=== PATIENT | male | born 1995 | race African-American/Black ===

== ENCOUNTER 2018-01-05 10:20 | Emergency (ER) | payer MEDICAID ==
[~2018-01-05] VITALS: Ht 185.4 cm; Wt 79.0 kg
[2018-01-05 10:21] VITALS: BP 122/82
== END 2018-01-05 12:17 | disposition left against medical advice (07) ==
LOC: ER 11:18
DX: Z53.21 Procedure and treatment not carried out due to patient leaving prior to being seen by health care provider (principal)
CPT/HCPCS: 99283

== ENCOUNTER 2022-04-19 09:09 | Emergency (ER) | payer SELFPAY ==
[~2022-04-19] VITALS: Ht 189.2 cm; Wt 66.0 kg
[2022-04-19 09:21] VITALS: BP 133/83
[2022-04-19] MEDS ORDERED: IBUP-2028 MT (10:08)
[2022-04-19] MEDS ORDERED: CLIN-194 MT (10:08)
[2022-04-19] MEDS ORDERED: CLINDAMYCIN HCL 150MG CAPSULE PO ONE (10:15)
[2022-04-19] MEDS ORDERED: IBUPROFEN 400MG TABLET PO ONE (10:15)
[2022-04-19] MEDS ORDERED: BACITRACIN ZINC OINT UDPKT TOP ONE (10:15)
[2022-04-19] MEDS ORDERED: LIDOCAINE HCL/PF 1% 10 MG/ML 5ML VIAL INFIL ONE (10:15)
[2022-04-19] MEDS ORDERED: CLINDAMYCIN HCL 150MG CAPSULE PO NR (10:45)
== END 2022-04-19 11:09 | disposition home or self-care (01) ==
LOC: ER 09:09
DX: L02.415 Cutaneous abscess of right lower limb (principal); L03.115 Cellulitis of right lower limb; R03.0 Elevated blood-pressure reading, without diagnosis of hypertension
CPT/HCPCS: 10060; 99284; J3490